=== PATIENT | female | born 1950 | race Hispanic/Latino ===

== ENCOUNTER 2020-08-23 00:21 | Emergency (ER) | payer OTHER ==
[2020-08-23 00:48] LABS: BASOPHILS % (AUTO) 0.4 % (0.0-5.0); EOSINOPHILS % (AUTO) 1.3 % (0.0-8.0); HEMATOCRIT 37.3 % (36-48); LYMPHOCYTES % (AUTO) 26.8 % (21.0-51.0); MEAN CORPUSCULAR HEMOGLOBIN 29.9 pg (27.0-33.0); MEAN CORPUSCULAR HGB CONC 32.2 g/dL (32.0-36.0); MEAN CORPUSCULAR VOLUME 92.8 fL (79-99); MONOCYTES % (AUTO) 5.9 % (3.0-13.0); NEUTROPHILS % (AUTO) 65.4 % (40.0-77.0); PLATELET COUNT (AUTO) 233 K/uL (130-400); RED BLOOD CELL COUNT(AUTO) 4.02 MIL/uL (4.00-5.50); RED CELL DISTRIBUTION WIDTH 13.3 % (11.0-15.5); WHITE BLOOD COUNT (AUTO) 8.4 K/uL (4.8-10.8)
[2020-08-23 01:09] LABS: INR 0.97 (0.85-1.15); PROTHROMBIN TIME 10.6 SEC (9.6-11.6)
[2020-08-23 01:10] LABS: PARTIAL THROMBOPLASTIN TIME 27.1 SEC (26.3-35.5)
[2020-08-23 01:15] LABS: CREATININE 0.9 mg/dL (0.5-1.5); POTASSIUM 3.6 mmol/L (3.5-5.1)
[2020-08-23 01:16] LABS: ALBUMIN 3.3 g/dL (3.5-5.0); BILIRUBIN,TOTAL 0.3 mg/dL (0.2-1.0); TOTAL PROTEIN, SERUM 7.7 g/dL (6.0-8.3)
== END 2020-08-23 02:39 | disposition home or self-care (01) ==
LOC: EDH 00:21
DX: F41.1 Generalized anxiety disorder (principal); R07.89 Other chest pain; M54.2 Cervicalgia; I10 Essential (primary) hypertension; Z86.73 Personal history of transient ischemic attack (TIA), and cerebral infarction without residual deficits; Z88.0 Allergy status to penicillin
CPT/HCPCS: 36415; 71045; 80053; 82550; 84484; 85025; 85610; 85730; 93005

== ENCOUNTER → 2023-01-14 | Outpatient (CLI) | payer OTHER, MEDICARE | END | disposition home or self-care (01) | LOC: RAH 10:58 | PROVIDERS: ATTEND Internal Medicine | DX: K76.0 Fatty (change of) liver, not elsewhere classified (principal); R10.9 Unspecified abdominal pain | CPT/HCPCS: 76700 ==

== ENCOUNTER → 2023-01-17 | Outpatient (CLI) | payer OTHER, MEDICARE | END | disposition home or self-care (01) | LOC: RAH 10:42 | PROVIDERS: ATTEND Internal Medicine | DX: R10.9 Unspecified abdominal pain (principal); Z90.49 Acquired absence of other specified parts of digestive tract | CPT/HCPCS: 74150 ==

== ENCOUNTER 2024-08-09 11:23 | Emergency (ER) | payer OTHER, MEDICARE ==
[~2024-08-09] VITALS: Ht 157.5 cm; Wt 93.9 kg
--- NOTE | 2024-08-09 12:51 | ERN ---
ED Note History of Present Illness Stated Complaint: RIGHT SIDE KNEE PAIN Chief Complaint: Knee Injury/Swelling Time Seen by MD: 11:38 Dictation: 74-year-old female with a history of HTN, asthma and allergies presents to the ED for evaluation of right knee pain onset one week ago. Patient reports pain radiates from her right knee up her leg, but denies trauma or injury. Patient was seen by PCP two days ago, x-rays were taken but results were not given. Patient was prescribed gabapentin for pain but mentioned she did not take them. Allergies: Coded Allergies: Penicillins (Unverified Allergy, Unknown, 08/09/24) ibuprofen (Unverified Allergy, Unknown, 08/09/24) Past Medical History Past Medical History: Heart Disease, Hypertension, Stroke Additional Past Medical Hx: SCIATICA Surgical History: Cholecystectomy, Review of System Dictation Constitutional: Negative for fever,chills, and weight loss Eyes: Negative for injury, pain,redness, and discharge ENT: Negative for injury,pain or swelling Cardiovascular: Negative for chest pain, palpitations, and edema Respiratory: Negative for shortness of breath, cough, and wheezing, Abdomen/GI: Negative for abdominal pain, nausea, vomiting, diarrhea, and constipation Back: Negative for injury and pain : Negative for injury, bleeding and discharge MS/Extremity: Positive for right knee pain Negative for injury and deformity Skin: Negative for rash, and discoloration Neuro: Negative for headache, weakness, numbness, tingling, and seizure Psych: Negative for suicide ideation, homicidal ideation, and hallucinations Initial Vital Sign VS Vital Signs Date Time Temp Pulse Resp B/P (MAP) Pulse Ox O2 Delivery O2 Flow Rate FiO2 08/09/24 11:40 97.9 60 16 173/74 100 Room Air 0 08/09/24 13:31 21 Physical Exam Dictation General: awake, alert, NAD Head/Face: Normocephalic, atraumatic Eyes: PERRL, EOMI, vision at baseline ENT: oral cavity clear, TMs clear, no signs of infection Neck: Trachea midline, supple, no nuchal rigidity Cardiovascular: RRR, normal S1/S2, No MRGs, no JVD Respiratory: CTAB, no respiratory distress, No rales or wheezes Abdomen: Soft, non-tender, non-distended, normal bowel sounds, no guarding or rebound. Skin: Warm, dry, normal turgor, no rash MS/Extremity: Pulses equal, no cyanosis, neurovascular intact, right knee medial aspect tenderness Neuro: COAx4, GCS 15, strength 5/5, CN 2-12 intact, normal cerebellar exam, normal gait, Psych: Normal behavior, mood, and affect normal Results (Laboratory/Radiology) X-RAY Comment: REASON: right knee pain ORDERING PHYSICIAN: LISE CARRERA MD PROCEDURE: KNEE 3V RT - KNEE 3VWS RT KNEE 3VWS RT CLINICAL HISTORY: right knee pain COMPARISON: None TECHNIQUE: AP lateral and oblique images were obtained. FINDINGS: No obvious fracture or dislocation. No joint effusion. The soft tissues demonstrate calcification in the joint space. No radiopaque foreign bodies. IMPRESSION: Chondrocalcinosis with no acute findings DICTATED BY: GINA BRAVO DO DATE: 08/09/24 1237 ED Course ED Course Orders Procedure Category Date Status Time Knee 3vws Rt RAD 08/09/24 Resulted 11:39 Diazepam 5 Mg/Ml 2 Ml PHA 08/09/24 Complete Syg (Valium 5 Mg/M 13:00 Current Medications Medications (Trade) Dose Ordered Sig/Jake Route PRN Reason Start Time Stop Time Status Last Admin Dose Admin Diazepam (VALium 5 MG/ML 2 ML SYG) 5 mg ONCE ONCE IM 08/09/24 13:00 08/09/24 13:01 DC 08/09/24 13:07 Vital Signs Date Time Temp Pulse Resp B/P (MAP) Pulse Ox O2 Delivery O2 Flow Rate FiO2 08/09/24 13:31 98.8 59 17 156/60 96 Room Air* 0 21 08/09/24 11:40 97.9 60 16 173/74 100 Room Air 0 Medical Decision Making MDM MDM: Differential diagnosis: Knee pain, sprain Risk of complication and/or morbidity or mortality of patient management: None Medications-Per medication reconciliation Need for hospitalization: Patient does not meet criteria for hospitalization. Need for emergency major/minor surgery: No There are no social concerns with this patient. Prescription drug management Prescriptions will include symptomatic care I independently interpreted the test that were performed, results were reviewed by me and considered findings on radiology if ordered. Medical management and examination interpretation discussions were had by me with other qualified healthcare professionals as indicated for the patient's care. DX & DISP Disposition: Discharge Departure Impression: Primary Impression: Right knee pain Condition: Stable Referrals: JOSH BUENO MD (PCP) LISE CARRERA MD Aug 09, 2024 12:51
[2024-08-09] MEDS: diazePAM 5 MG/ML 2 ML SYG IM ONE (13:07)
[2024-08-09 13:31] VITALS: BP 156/60; PULSE 59; RESP 17; TEMP 98.8; O2SAT 96
--- NOTE | 2024-08-09 13:36 | NUR ---
PATIENT AND FAMILY REFUSING [employer] BANDAGE APPLICATION
== END 2024-08-09 13:40 | disposition home or self-care (01) ==
LOC: EDH 11:23
DX: M25.561 Pain in right knee (principal); I10 Essential (primary) hypertension; Z86.73 Personal history of transient ischemic attack (TIA), and cerebral infarction without residual deficits; Z88.0 Allergy status to penicillin; Z88.6 Allergy status to analgesic agent; Z90.49 Acquired absence of other specified parts of digestive tract
CPT/HCPCS: 99284; 73562; 96372; J3360